=== PATIENT | female | born 1930 | race Caucasian/White ===

== ENCOUNTER → 2018-05-04 | Outpatient (REF) | payer MEDICARE, OTHER ==
[2018-05-04 18:39] LABS: ALBUMIN 3.5 GM/DL (3.2-5.2); ALBUMIN/GLOBULIN RATIO 1.17 (1.00-1.93); ALKALINE PHOSPHATASE 83 U/L (45-117); ALT/SGPT 12 U/L (12-78); ANION GAP 12 MEQ/L (8-16); AST/SGOT 20 U/L (7-37); BILIRUBIN,TOTAL 0.7 MG/DL (0.2-1.0); BLOOD UREA NITROGEN 13 MG/DL (7-18); CALCIUM LEVEL 8.9 MG/DL (8.8-10.2); CARBON DIOXIDE LEVEL 24 MEQ/L (21-32); CHLORIDE LEVEL 109 MEQ/L (98-107); CREATININE FOR GFR 0.65 MG/DL (0.55-1.30); GLOMERULAR FILTRATION RATE > 60.0 (>32); GLUCOSE, FASTING 85 MG/DL (70-100); POTASSIUM SERUM 4.6 MEQ/L (3.5-5.1); SODIUM LEVEL 145 MEQ/L (136-145); TOTAL PROTEIN 6.5 GM/DL (6.4-8.2)
[2018-05-04 20:13] LABS: HEMATOCRIT 44.2 % (36.0-47.0); HEMOGLOBIN 14.4 g/dl (12.0-15.5); MEAN CORPUSCULAR HEMOGLOBIN 33.8 pg (27.0-33.0); MEAN CORPUSCULAR HGB CONC 32.6 g/dl (32.0-36.5); MEAN CORPUSCULAR VOLUME 103.8 fl (80.0-96.0); PLATELET COUNT, AUTOMATED 283 10^3/uL (150-450); RED BLOOD COUNT 4.26 10^6/uL (4.00-5.40); RED CELL DISTRIBUTION WIDTH 13.2 % (11.5-14.5); WHITE BLOOD COUNT 5.2 10^3/uL (4.0-10.0)
== END ==
LOC: M SFHCCAPE 09:49
DX: K21.9 Gastro-esophageal reflux disease without esophagitis (principal); G30.9 Alzheimer's disease, unspecified
CPT/HCPCS: 80053

== ENCOUNTER 2019-01-17 20:49 | Observation (INO) | payer MEDICARE, BC, OTHER ==
[~2019-01-17] VITALS: Ht 154.9 cm; Wt 59.1 kg
[~2019-01-17 20:49] MED LIST: CEPH2CAP PO; PRIL20CA PO; XARE15TA PO
[2019-01-17] MEDS ORDERED: NS 1,000 ML IV ONE (21:15)
[2019-01-17] MEDS ORDERED: NS 500 ML IV ONE (21:15)
[2019-01-17] MEDS ORDERED: DONE10TA90 PO (21:15)
[2019-01-17] MEDS ORDERED: MEMA1TAB2 PO (21:15)
[2019-01-17] MEDS ORDERED: ACET1TAB55 PO (21:18)
--- NOTE | 2019-01-17 22:12 | REPVR ---
EXAM: CT Cervical Spine Without Contrast EXAM DATE/TIME: 01/17/2019 9:29 PM CLINICAL HISTORY: 88 years old, female; Pain; Other: Fall; Additional info: Fall/xarelto TECHNIQUE: Imaging protocol: Axial computed tomography images of the cervical spine without contrast. Coronal and sagittal reformatted images were created and reviewed. Radiation optimization: All CT scans at this facility use at least one of these dose optimization techniques: automated exposure control; mA and/or kV adjustment per patient size (includes targeted exams where dose is matched to clinical indication); or iterative reconstruction. COMPARISON: No relevant prior studies available. FINDINGS: Vertebrae: Osteopenia. Normal cervical lordosis. Mild levoscoliosis. Minimal retrolisthesis of C2 on C3. Mild anterolisthesis of C4 on C5 and C7 on T1. Alignment otherwise anatomic. No CT evidence of acute fracture, dislocation or subluxation. Vertebral body heights maintained. Discs/Spinal canal/Neural foramina: Mild multilevel degenerative changes, characterized by disc space narrowing, osteophytosis and uncovertebral and facet joint hypertrophy. Mild multilevel spinal canal and neural foraminal narrowing. Soft tissues: Grossly unremarkable. Lungs: Grossly unremarkable. IMPRESSION: 1. No CT evidence of acute cervical spine traumatic injury. 2. Additional findings, as above. Electronically signed by: Melchor Dean On 01/17/2019 22:11:50 PM
--- NOTE | 2019-01-17 22:16 | REPVR ---
EXAM: CT Head Without Contrast EXAM DATE/TIME: 01/17/2019 9:29 PM CLINICAL HISTORY: 88 years old, female; Pain; Other: Fall; Additional info: Fall/xarelto TECHNIQUE: Imaging protocol: Axial computed tomography images of the head/brain without contrast. Radiation optimization: All CT scans at this facility use at least one of these dose optimization techniques: automated exposure control; mA and/or kV adjustment per patient size (includes targeted exams where dose is matched to clinical indication); or iterative reconstruction. COMPARISON: No relevant prior studies available. FINDINGS: Brain: Patchy areas of hypoattenuation in the periventricular and subcortical white matter, consistent with chronic small vessel ischemic disease. Focal, well-circumscribed hypodensities in the basal ganglia and cerebellum, consistent with chronic lacunar infarcts. No CT evidence of acute intracranial hemorrhage or acute territorial infarction. No significant mass effect or midline shift. Basal cisterns patent. Ventricles: Prominence of the cortical sulci, cisterns and ventricular system, consistent with cerebral and cerebellar volume loss. Bones/joints: No acute osseous abnormality. Sinuses: Left greater than right maxillary sinus polyps versus mucous retention cysts. Mastoid air cells: Grossly unremarkable. Soft tissues: Grossly unremarkable. Vasculature: Calcific atherosclerotic disease in the cavernous internal carotid arteries, as well as the vertebro-basilar system. IMPRESSION: 1. No CT evidence of acute intracranial pathology. 2. Additional findings, as above. Electronically signed by: Melchor Dean On 01/17/2019 22:15:45 PM
[2019-01-17 22:46] LABS: BASO % 0.3 % (0.0-1.0); EOS % 0.2 % (0.0-3.0); HEMOGLOBIN 13.4 g/dl (12.0-15.5); LYMPH # 0.9 10^3/uL (1.5-4.5); LYMPH % 8.2 % (24.0-44.0); MEAN CORPUSCULAR HEMOGLOBIN 35.3 pg (27.0-33.0); MEAN CORPUSCULAR HGB CONC 33.5 g/dl (32.0-36.5); MEAN CORPUSCULAR VOLUME 105.3 fl (80.0-96.0); MONO # 0.9 10^3/uL (0.0-0.8); MONO % 7.7 % (0.0-5.0); NEUTROPHILS # 9.3 10^3/uL (1.8-7.7); NEUTROPHILS % 83.3 % (36.0-66.0); PLATELET COUNT, AUTOMATED 208 10^3/uL (150-450); WHITE BLOOD COUNT 11.2 10^3/uL (4.0-10.0)
[2019-01-17 22:48] LABS: VENOUS BASE EXCESS 0.6 (-2.0-2.0); VENOUS HCO3 26.2 MEQ/L (23.0-27.0); VENOUS PARTIAL PRESSURE CO2 45.6 mmHg (38.0-50.0); VENOUS PARTIAL PRESSURE O2 35.6 mmHg (30.0-50.0); VENOUS PH 7.377 UNITS (7.330-7.430); VENOUS STANDARD HCO3 24.3 MEQ/L; VENOUS TOTAL CO2 27.6 MEQ/L (24.0-28.0)
[2019-01-17 23:13] LABS: OSMOLALITY SERUM 297 MOSM/KG (280-301)
[2019-01-17 23:24] LABS: ALBUMIN 3.3 GM/DL (3.2-5.2); ALT/SGPT 15 U/L (12-78); BILIRUBIN,DIRECT 0.2 MG/DL (0.0-0.2); BILIRUBIN,TOTAL 0.6 MG/DL (0.2-1.0); BLOOD UREA NITROGEN 16 MG/DL (7-18); CALCIUM LEVEL 8.4 MG/DL (8.8-10.2); CARBON DIOXIDE LEVEL 27 MEQ/L (21-32); CHLORIDE LEVEL 110 MEQ/L (98-107); CK-MB VALUE MASS < 1.0 NG/ML (<3.6); CPK CREATINE PHOSPHOKINASE 44 U/L (26-192); CREATININE FOR GFR 0.87 MG/DL (0.55-1.30); GLOMERULAR FILTRATION RATE > 60.0 (>32); GLUCOSE, FASTING 112 MG/DL (70-100); MB/CK RELATIVE INDEX 2.27 (< OR =4); SODIUM LEVEL 145 MEQ/L (136-145); TOTAL PROTEIN 5.9 GM/DL (6.4-8.2); TROPONIN I < 0.02 NG/ML (< 0.10)
[2019-01-17 23:52] LABS: FREE T4 1.16 NG/DL (0.76-1.46)
[2019-01-18] MEDS ORDERED: XARE20TA PO (00:39)
--- NOTE | 2019-01-18 00:41 | HPEPDOC ---
General Date of Admission Chief Complaint The patient is a 88-year-old female admitted with a reason for visit of Weakness. Source: Family, RN/MD, Old records History of Present Illness Ms. Barba is an 88 years old woman with dementia. She was brought to ER due to generalized weakness, increased assist requirement for ambulation and generally not looking well. Pt is alert and responsive in the ER. Nurse reported pt was combative and spat at the staff. Vitals, labs and extensive imaging are u nremarkable for acute illness. During my visit, pt recognized her daughter, but she did not allow me to examine her nor answered any question. Info obtained fro family. There are no other acute problems reported, than mentioned above. Pt has chronic knee and back pain for which she takes Tylenol at home. Family prefers pt to stay overnight for observation. Home Medications Scheduled Acetaminophen (Acetaminophen) 325 Mg Tablet, 650 MG PO BID, (Reported) Donepezil HCl (Donepezil HCl) 10 Mg Tablet, 10 MG PO QPM, (Reported) Memantine HCl (Memantine HCl) 10 Mg Tablet, 10 MG PO QPM, (Reported) Rivaroxaban (Xarelto) 20 Mg Tablet, 20 MG PO QPM, (Reported) Allergies Coded Allergies: Penicillins (Verified Allergy, Unknown, 01/17/19) Past Medical History Medical History Alzheimer's dementia, Chronic pain, Ambulation dysfunction Surgical History Right knee surgery, Bunion removal Family History Significant Family History: No pertinent family hx Social History * Smoker: Denies Alcohol: Denies Drugs: denies A-FIB/CHADSVASC A-FIB History Current/History of A-Fib/PAF?: No Review of Systems Other systems Unable to obtain due to dementia; refer to HPI info obtained from family. Physical Examination General Exam: Positive: Alert, No Acute Distress, Other (uncooperative) Other physical findings Pt did not allow physical exam. There were no facial asymmetry; pt was moving all limbs properly; not in distress or pain. Vital Signs Vital Signs Date Time Temp Pulse Resp B/P (MAP) Pulse Ox O2 Delivery O2 Flow Rate FiO2 01/17/19 21:04 85 97 01/17/19 21:00 117/58 (77) 01/17/19 20:59 98.8 18 Room Air Laboratory Data Labs 24H Laboratory Tests 2 01/17/19 22:28: Immature Granulocyte % (Auto) 0.3, White Blood Count 11.2H, Red Blood Count 3.80L, Hemoglobin 13.4, Hematocrit 40.0, Mean Corpuscular Volume 105.3H, Mean Corpuscular Hemoglobin 35.3H, Mean Corpuscular Hemoglobin Concent 33.5, Red Cell Distribution Width 13.0, Platelet Count 208, Neutrophils (%) (Auto) 83.3H, Lymphocytes (%) (Auto) 8.2L, Monocytes (%) (Auto) 7.7H, Eosinophils (%) (Auto) 0.2, Basophils (%) (Auto) 0.3, Neutrophils # (Auto) 9.3H, Lymphocytes # (Auto) 0.9L, Monocytes # (Auto) 0.9H, Eosinophils # (Auto) 0.0, Basophils # (Auto) 0.0, Nucleated Red Blood Cells % (auto) 0.0, Blood Gas Bicarbonate Standard 24.3, Venous Blood pH 7.377, Venous Blood Partial Pressure CO2 45.6, Venous Blood Partial Pressure O2 35.6, Venous Blood Total Carbon Dioxide 27.6, Venous Blood HCO3 26.2, Venous Blood Oxygen Saturation 68.0, Venous Blood Base Excess 0.6, Anion Gap 8, Glomerular Filtration Rate > 60.0, Osmolality 297, Calcium Level 8.4L, Aspartate Amino Transf (AST/SGOT) 17, Alanine Aminotransferase (ALT/SGPT) 15, Alkaline Phosphatase 85, Total Bilirubin 0.6, Direct Bilirubin 0.2, Ammonia 15, Total Creatine Kinase 44, Creatine Kinase MB < 1.0, Creatine Kinase MB Relative Index 2.27, Troponin I < 0.02, Total Protein 5.9L, Albumin 3.3, Albumin/Globulin Ratio 1.27, Thyroid Stimulating Hormone (TSH) 0.350L, Free Thyroxine 1.16 01/17/19 22:32: Urine Color YELLOW, Urine Appearance CLEAR, Urine pH 5.0, Urine Specific [place] 1.017, Urine Protein NEGATIVE, Urine Glucose (UA) NEGATIVE, Urine Ketones 1+H, Urine Blood NEGATIVE, Urine Nitrite NEGATIVE, Urine Bilirubin NEGATIVE, Urine Urobilinogen 2.0H, Urine Leukocyte Esterase NEGATIVE, Urine WBC (Auto) 3, Urine RBC (Auto) 1, Urine Hyaline Casts (Auto) 0, Urine Bacteria (Auto) NEGATIVE, Urine Squamous Epithelial Cells 1, Urine Sperm (Auto) CBC/BMP Laboratory Tests 01/17/19 22:28 Red Blood Count 3.80 L, Mean Corpuscular Volume 105.3 H, Mean Corpuscular Hemoglobin 35.3 H, Mean Corpuscular Hemoglobin Concent 33.5, Red Cell Distribution Width 13.0, Neutrophils (%) (Auto) 83.3 H, Lymphocytes (%) (Auto) 8.2 L, Monocytes (%) (Auto) 7.7 H, Eosinophils (%) (Auto) 0.2, Basophils (%) (Auto) 0.3, Neutrophils # (Auto) 9.3 H, Lymphocytes # (Auto) 0.9 L, Monocytes # (Auto) 0.9 H, Eosinophils # (Auto) 0.0, Basophils # (Auto) 0.0 Microbiology Microbiology 01/17/19 Blood Culture, Received Pending 01/17/19 Blood Culture, Received Pending Assessment/Plan Dementia with Sundowning and Behavioral Disturbance - Keep in Obs - PT/OT, Supportive care - D/C home tomorrow Plan / VTE VTE Prophylaxis Ordered?: No VTE Exclusion Mechanical Proph: Low Risk for VTE VTE Exclusion Pharmacological: At Low Risk for VTE Plan Anticipated Discharge: Home BOBO RUVALCABA MD January 18, 2019 00:41
[2019-01-18] MEDS ORDERED: ACETAMINOPHEN TAB 650MG DOSE (2X325MG) PO PRN (00:45)
[2019-01-18] MEDS ORDERED: MOM 30ML SUSPENSION UDC PO PRN (00:45)
[2019-01-18] MEDS ORDERED: MAALOX 30 ML SUSP *UDC PO PRN (00:45)
[2019-01-18 02:45] VITALS: BP 143/68
[2019-01-18 06:00] VITALS: BP 140/60
--- NOTE | 2019-01-18 06:00 | ECGEPIP ---
Stationary ECG Study [facility] - ED Test Date: 2019-01-17 Pat Name: SUHA ALMODOVAR Department: Room: - Gender: F [employer]: : 1930 Requested By: LAYNE Lees Order Number: [id number] Reading MD: Ronan Saldivar Measurements Intervals [place] Rate: 70 P: 91 MS: 142 QRS: -7 QRSD: 83 T: 39 QT: 394 QTc: 426 Interpretive Statements SINUS RHYTHM NONSPECIFIC T-WAVE ABNORMALITY BASELINE ARTIFACT AFFECTS INTERPRETATION Electronically Signed On 01-18-2019 5:59:29 EDT by Ronan Saldivar
--- NOTE | 2019-01-18 08:04 | REP ---
Pelvis left hip: Three views. History: Altered mental status. Findings: AP and frog-leg views of the left hip are obtained along with an AP pelvis. There is diffuse osteopenia. Bony pelvic ring is intact. There is no evidence of fracture. No bony destructive lesion is appreciated. No sacral fracture or sacral lesion is seen. There are degenerative disc changes at L4-5. Osteoarthritic spurring is seen at the hip joints bilaterally, right more so than left. No femur fracture is noted. There are some osteoarthritic changes at the symphysis pubis. Impression: Diffuse osteopenia, osteoarthritis, degenerative spondylosis in the lower lumbar spine. No acute bony abnormality. Electronically Signed by Noel Kirkland MD 01/18/2019 07:56 A
--- NOTE | 2019-01-18 08:05 | REP ---
Left knee series: Four views. History: Altered mental status. Findings: Four views of the left knee show diffuse osteopenia. There is three compartment osteoarthritis. Vascular calcification is seen. Chondrocalcinosis is noted. No acute bony abnormality. The study does not include the sunrise view. Impression: Diffuse osteopenia. Three compartment osteoarthritis. No acute bony abnormality. Electronically Signed by Noel Kirkland MD 01/18/2019 07:57 A
--- NOTE | 2019-01-18 08:19 | REP ---
Left tibia and fibula: Four views. History: Altered mental status. Findings: Four views of the left tibia and fibula demonstrate diffuse osteopenia. There is ankle and knee joint osteoarthritic spurring. Heel spurring is noted. Vascular calcification is visible. No fracture or other acute bony abnormality is appreciated. Impression: Diffuse osteopenia and osteoarthritic changes. No acute bony abnormality. Electronically Signed by Noel Kirkland MD 01/18/2019 08:09 A
--- NOTE | 2019-01-18 08:21 | REP ---
Portable chest x-ray: Single view. History: Altered mental status. Comparison study: February 15, 2014 and November 13, 2013. Findings: The patient is rotated somewhat to the left for the current exposure. EKG electrodes are seen. Heart is not felt to be enlarged. The thoracic aorta shows vascular calcification. There is mild linear fibrosis in the posterior right lung gutter. No definite infiltrate. Impression: The patient is rotated to the left. Otherwise no acute disease. Electronically Signed by Noel Kirkland MD 01/18/2019 07:12 P
[2019-01-18] MEDS: ACETAMINOPHEN TAB 650MG DOSE (2X325MG) PO SCH ×2 (09:28→17:36)
[2019-01-18 14:00] VITALS: BP 121/58
[2019-01-18] MEDS ORDERED: DONEPEZIL 5 MG TAB PO SCH (18:00)
[2019-01-18] MEDS ORDERED: RIVAROXABAN 20 MG TAB (XARELTO) PO SCH (18:00)
[2019-01-18] MEDS ORDERED: MEMANTINE 5MG TABLET (NAMENDA) PO SCH (18:00)
[2019-01-18 22:00] VITALS: BP 130/67
[2019-01-19 06:00] VITALS: BP 131/63
[2019-01-19 06:05] LABS: HEMATOCRIT 36.3 % (36.0-47.0); HEMOGLOBIN 12.1 g/dl (12.0-15.5); MEAN CORPUSCULAR HEMOGLOBIN 33.9 pg (27.0-33.0); MEAN CORPUSCULAR HGB CONC 33.3 g/dl (32.0-36.5); MEAN CORPUSCULAR VOLUME 101.7 fl (80.0-96.0); PLATELET COUNT, AUTOMATED 190 10^3/uL (150-450); RED BLOOD COUNT 3.57 10^6/uL (4.00-5.40); WHITE BLOOD COUNT 5.9 10^3/uL (4.0-10.0)
[2019-01-19 07:55] LABS: ALBUMIN 3.1 GM/DL (3.2-5.2); ALT/SGPT 11 U/L (12-78); BILIRUBIN,TOTAL 0.6 MG/DL (0.2-1.0); BLOOD UREA NITROGEN 17 MG/DL (7-18); CALCIUM LEVEL 8.5 MG/DL (8.8-10.2); CARBON DIOXIDE LEVEL 27 MEQ/L (21-32); CHLORIDE LEVEL 111 MEQ/L (98-107); CREATININE FOR GFR 0.61 MG/DL (0.55-1.30); GLOMERULAR FILTRATION RATE > 60.0 (>32); GLUCOSE, FASTING 88 MG/DL (70-100); POTASSIUM SERUM 3.5 MEQ/L (3.5-5.1); SODIUM LEVEL 144 MEQ/L (136-145); TOTAL PROTEIN 5.5 GM/DL (6.4-8.2)
[2019-01-19 09:20] LABS: FOLATE 8.8 NG/ML (>5.4); VITAMIN B12 LEVEL 228 PG/ML (247-911)
[2019-01-19] MEDS: ACETAMINOPHEN TAB 650MG DOSE (2X325MG) PO SCH (10:20)
== END 2019-01-19 13:26 | disposition home or self-care (01) ==
LOC: M ED 20:49 → EDBD 20:49 → M ED INP 20:50 → M MSPAV 20:50
PROVIDERS: ADMIT Internal Medicine; ATTEND Family Medicine
DX: G93.41 Metabolic encephalopathy (principal); G30.9 Alzheimer's disease, unspecified; F02.81 Dementia in other diseases classified elsewhere, unspecified severity, with behavioral disturbance; G89.4 Chronic pain syndrome; M62.81 Muscle weakness (generalized); R26.9 Unspecified abnormalities of gait and mobility; K21.9 Gastro-esophageal reflux disease without esophagitis; M25.562 Pain in left knee; Z91.81 History of falling; N32.81 Overactive bladder; Z79.899 Other long term (current) drug therapy; Z88.0 Allergy status to penicillin
CPT/HCPCS: 36415; 70450; 71045; 72125; 73502; 73564; 73590; 80048; 80053; 80076; 81001; 82140; 82550; 82553; 82607; 82746; 82803; 83930; 84439; 84443; 84484; 85025; 85027; 87040; 93005; 93041; 96374; 97116; 97161; 97165; 97530; 99285; G0378

== ENCOUNTER 2019-03-19 16:57 | Inpatient (IN) | payer MEDICARE, BC, OTHER ==
[~2019-03-19] VITALS: Ht 152.4 cm; Wt 61.4 kg
[~2019-03-19 16:57] MED LIST changes: +ACET1TAB55 PO; +DONE10TA90 PO; +MEMA10TA19 PO; +XARE20TA PO
[2019-03-19] MEDS ORDERED: NS 500 ML IV ONE ×2 (17:15→19:15)
--- NOTE | 2019-03-19 17:32 | REPVR ---
EXAM: CT Head Without Contrast EXAM DATE/TIME: 03/19/2019 5:26 PM CLINICAL HISTORY: 88 years old, female; Altered mental status/memory loss; Confusion or disorientation TECHNIQUE: Imaging protocol: Axial computed tomography images of the head without contrast. Radiation optimization: All CT scans at this facility use at least one of these dose optimization techniques: automated exposure control; mA and/or kV adjustment per patient size (includes targeted exams where dose is matched to clinical indication); or iterative reconstruction. COMPARISON: CT Head without contrast 01/17/2019 9:13 PM FINDINGS: Brain: There is moderate age-related parenchymal volume loss. White matter changes are demonstrated in the subcortical, centrum semiovale and periventricular white matter consistent with small vessel white matter angiopathic gliosis. Ventricles: The degree of ventricular dilatation is normal for age. No pathologic enlargement demonstrated. Bones/joints: Unremarkable. No acute fracture. Sinuses: Visualized sinuses are unremarkable. No fluid levels. Mastoid air cells: Visualized mastoid air cells are well aerated. No mastoid effusion. Soft tissues: Unremarkable. IMPRESSION: There is moderate age-related parenchymal volume loss. White matter changes are demonstrated in the subcortical, centrum semiovale and periventricular white matter consistent with small vessel white matter angiopathic gliosis. Electronically signed by: Eric Duffy On 03/19/2019 17:32:10 PM
[2019-03-19 18:08] LABS: BASO % 0.2 % (0.0-1.0); HEMATOCRIT 43.1 % (36.0-47.0); HEMOGLOBIN 14.2 g/dl (12.0-15.5); LYMPH # 0.8 10^3/uL (1.5-4.5); LYMPH % 7.5 % (24.0-44.0); MEAN CORPUSCULAR HEMOGLOBIN 34.5 pg (27.0-33.0); MEAN CORPUSCULAR HGB CONC 32.9 g/dl (32.0-36.5); MEAN CORPUSCULAR VOLUME 104.6 fl (80.0-96.0); MONO # 0.7 10^3/uL (0.0-0.8); MONO % 6.6 % (0.0-5.0); NEUTROPHILS % 85.3 % (36.0-66.0); PLATELET COUNT, AUTOMATED 283 10^3/uL (150-450); RED BLOOD COUNT 4.12 10^6/uL (4.00-5.40); WHITE BLOOD COUNT 10.5 10^3/uL (4.0-10.0)
[2019-03-19 18:21] LABS: INR 1.05; PROTHROMBIN TIME 13.4 SECONDS (11.8-14.0)
[2019-03-19 18:22] LABS: PARTIAL THROMBOPLASTIN TIME 21.5 SECONDS (25.0-38.4)
[2019-03-19 18:42] LABS: ACETAMINOPHEN LEVEL < 2.0 UG/ML (10.0-30.0); ALBUMIN 3.7 GM/DL (3.2-5.2); ALT/SGPT 23 U/L (12-78); BILIRUBIN,DIRECT 0.1 MG/DL (0.0-0.2); BILIRUBIN,TOTAL 0.6 MG/DL (0.2-1.0); BLOOD UREA NITROGEN 15 MG/DL (7-18); CALCIUM LEVEL 9.1 MG/DL (8.8-10.2); CARBON DIOXIDE LEVEL 26 MEQ/L (21-32); CHLORIDE LEVEL 107 MEQ/L (98-107); CK-MB VALUE MASS 118.3 NG/ML (<3.6); CPK CREATINE PHOSPHOKINASE 1030 U/L (26-192); CREATININE FOR GFR 1.43 MG/DL (0.55-1.30); ETHYL ALCOHOL (ETHANOL) < 0.003 % (0.000-0.010); GLOMERULAR FILTRATION RATE 36.9 (>32); GLUCOSE, FASTING 132 MG/DL (70-100); MB/CK RELATIVE INDEX 11.49 (< OR =4); NT-PRO BNP 4035 PG/ML (<450); POTASSIUM SERUM 4.4 MEQ/L (3.5-5.1); SALICYLATE LEVEL < 1.7 MG/DL (5.0-30.0); SODIUM LEVEL 141 MEQ/L (136-145); THYROID STIMULATING HORMONE 0.931 uIU/ML (0.358-3.740); TOTAL PROTEIN 6.7 GM/DL (6.4-8.2)
[2019-03-19] MEDS ORDERED: ASPIRIN 81 MG CHEW TABLET PO ONE (19:15)
[2019-03-19] MEDS ORDERED: NS 1,000 ML IV SCH (20:30)
--- NOTE | 2019-03-19 20:38 | HPEPDOC ---
General Date of Admission Mar 19, 2019 at 19:58 Date of Service: Mar 19, 2019 Chief Complaint The patient is a 88-year-old female admitted with a reason for visit of Non- Stemi. History of Present Illness 88-year-old female with past medical history of dementia, DVT on Xarelto presented to the ER with her daughter after she was noted to be increasingly lethargic and with some shortness of breath. The patient's history is limited given her dementia, but she denies any chest pain. In the ER, the patient's daughter states that the patient is looking much better than she did at home. She denies any shortness of breath. The patient's daughter denies the patient having any history of coronary artery disease. In the ER, an EKG revealed bradycardia with a junctional rhythm. Also of note, the patient's troponin level was noted to be 18.6. The ER attending and myself discussed at length about whether the patient wanted to be transferred to [place] for a cardiac catheterization. At this point, the patient's daughter/healthcare proxy has declined sending the patient for a cardiac catheterization. They want medical treatment only at this time, and have signed a DNR/DNI Mol[employer] form. The patient will be admitted to the hospitalist service for further evaluation and management. Home Medications Scheduled Acetaminophen (Acetaminophen) 325 Mg Tablet, 650 MG PO BID, (Reported) Donepezil HCl (Donepezil HCl) 10 Mg Tablet, 10 MG PO QPM, (Reported) Memantine HCl (Memantine HCl) 10 Mg Tablet, 10 MG PO BID, (Reported) Rivaroxaban (Xarelto) 20 Mg Tablet, 20 MG PO QPM, (Reported) Allergies Coded Allergies: Penicillins (Verified Allergy, Unknown, 01/17/19) Past Medical History Medical History As noted in HPI. Social History * Smoker: Denies Alcohol: Denies Drugs: denies Lives with her daughter and son at home. Ambulates with a rolling walker with assistance Review of Systems Other systems 10 point review of systems is limited given the patient's dementia Physical Examination General Exam: Positive: Alert, Cooperative, No Acute Distress ENT Exam: Positive: Atraumatic, Mucous membr. moist/pink Neck Exam: Negative: JVD Chest Exam: Positive: Clear to auscultation, Normal air movement Heart Exam: Positive: Bradycardic Telemetry: Positive: Other Telemetry: (junctional bradycardia) Abdomen Exam: Positive: Soft; Negative: Tenderness Extremity Exam: Negative: Tenderness, Swelling Vital Signs Vital Signs Date Time Temp Pulse Resp B/P (MAP) Pulse Ox O2 Delivery O2 Flow Rate FiO2 03/19/19 19:22 55 18 103/57 (72) 97 Room Air 03/19/19 17:14 98.5 Laboratory Data Labs 24H Laboratory Tests 2 03/19/19 17:39: Immature Granulocyte % (Auto) 0.4, White Blood Count 10.5H, Red Blood Count 4.12, Hemoglobin 14.2, Hematocrit 43.1, Mean Corpuscular Volume 104.6H, Mean Corpuscular Hemoglobin 34.5H, Mean Corpuscular Hemoglobin Concent 32.9, Red Cell Distribution Width 13.2, Platelet Count 283, Neutrophils (%) (Auto) 85.3H, Lymphocytes (%) (Auto) 7.5L, Monocytes (%) (Auto) 6.6H, Eosinophils (%) (Auto) 0.0, Basophils (%) (Auto) 0.2, Neutrophils # (Auto) 9.0H, Lymphocytes # (Auto) 0.8L, Monocytes # (Auto) 0.7, Eosinophils # (Auto) 0.0, Basophils # (Auto) 0.0, Nucleated Red Blood Cells % (auto) 0.0, Prothrombin Time 13.4, Prothromb Time International Ratio 1.05, Activated Partial Thromboplast Time 21.5L, Anion Gap 8, Glomerular Filtration Rate 36.9, Lactic Acid Level 3.8*H, Calcium Level 9.1, Aspartate Amino Transf (AST/SGOT) 134H, Alanine Aminotransferase (ALT/SGPT) 23, Alkaline Phosphatase 82, Total Bilirubin 0.6, Direct Bilirubin 0.1, Ammonia 21, Total Creatine Kinase 1030H, Creatine Kinase MB 118.3H, Creatine Kinase MB Relative Index 11.49H, Troponin I 18.60*H, RA-Mvi-W-Type Natriuretic Peptide 4035H, Total Protein 6.7, Albumin 3.7, Albumin/Globulin Ratio 1.23, Thyroid Stimulating Hormone (TSH) 0.931, Free Thyroxine 1.00, Salicylates Level < 1.7L, Acetaminophen Level < 2.0L, Ethyl Alcohol Level < 0.003 03/19/19 17:44: Bedside Glucose (Misc Panel) 139H 03/19/19 17:47: POC Glucose (Misc Panel) 139H, POC Sodium (Misc Panel) 141, POC Potassium (Misc Panel) 3.7, POC Chloride (Misc Panel) 105, POC Total CO2 (Misc Panel) 23.0, POC Blood Urea Nitrogen (Misc Panel 18, POC Ionized Calcium (Misc Panel) 4.2L, POC Creatinine (Misc Panel) 1.3, POC Hematocrit (Misc Panel) 45.0 CBC/BMP Laboratory Tests 03/19/19 17:39 Red Blood Count 4.12, Mean Corpuscular Volume 104.6 H, Mean Corpuscular Hemoglobin 34.5 H, Mean Corpuscular Hemoglobin Concent 32.9, Red Cell Distribution Width 13.2, Neutrophils (%) (Auto) 85.3 H, Lymphocytes (%) (Auto) 7.5 L, Monocytes (%) (Auto) 6.6 H, Eosinophils (%) (Auto) 0.0, Basophils (%) (Auto) 0.2, Neutrophils # (Auto) 9.0 H, Lymphocytes # (Auto) 0.8 L, Monocytes # (Auto) 0.7, Eosinophils # (Auto) 0.0, Basophils # (Auto) 0.0 Microbiology Microbiology 03/19/19 Blood Culture, Received Pending 03/19/19 Blood Culture, Received Pending Plan / VTE VTE Prophylaxis Ordered?: Yes Plan Plan Elevated Troponin, Junctional Bradycardia 2/2 NSTEMI EKG notable for junctional bradycardia. Her heart rate remains in the 40s-50s, but she is asymptomatic. Initial troponin noted to be 18.6.--We will continue to serially trend this I did discuss the case with Dr. Linda of cardiology via telephone, and at this time we'll continue the patient on Xarelto and start her on 81 mg of aspirin. We will continue to monitor the patient with supportive treatment History of DVT Continue Xarelto Hx of Dementia Cont memantine, donepezil DT prophylaxis On Xarelto JONATHAN MOCK MD Mar 19, 2019 20:38
[2019-03-19] MEDS ORDERED: MORPHINE 4 MG/ML 1ML VIAL/SYRINGE (J2270) IV PRN (20:45)
--- NOTE | 2019-03-19 20:49 | ECGEPIP ---
[facility] - ED Test Date: 2019-03-19 Pat Name: SUHA ALMODOVAR Department: Room: - Gender: Female K[employer]: : 1930 Requested By: May Loja Order Number: [id number] Reading MD: May Loja Measurements Intervals [place] Rate: 45 P: 268 VT: 70 QRS: QRSD: 98 T: 60 QT: 502 QTc: 438 Interpretive Statements JUNCTIONAL BRADYCARDIA NONSPECIFIC T-WAVE ABNORMALITY ABNORMAL RHYTHM ECG INTERPRETATION BASED ON A DEFAULT AGE OF 40 YEARS CW 01/17/19 RATE DECREASED RHYTHM CHANGE NONSPECIFIC ST T WAVE CHANGES CLINICAL CORRELATION ADVISED Electronically Signed on 03-19-2019 20:49:13 EDT by May Loja
[2019-03-19] MEDS ORDERED: RIVAROXABAN 20 MG TAB (XARELTO) PO SCH (21:00)
[2019-03-19] MEDS ORDERED: DONEPEZIL 5 MG TAB PO SCH (21:00)
[2019-03-19 21:15] LABS: AMPHETAMINES LEVEL URINE NEGATIVE (NEGATIVE); BARBITURATES URINE NEGATIVE (NEGATIVE); BENZODIAZEPINES URINE NEGATIVE (NEGATIVE); CANNABINOIDS URINE NEGATIVE (NEGATIVE); COCAINE METABOLITE URINE NEGATIVE (NEGATIVE); METHADONE URINE NEGATIVE (NEGATIVE); OPIATES URINE NEGATIVE (NEGATIVE); PHENCYCLIDINE URINE NEGATIVE (NEGATIVE)
[2019-03-19 21:29] VITALS: BP 117/58
[2019-03-19] MEDS: MEMANTINE 5MG TABLET (NAMENDA) PO SCH (22:07)
[2019-03-20] VITALS (7 sets, daily range): BP systolic 95–172; BP diastolic 60–84
[2019-03-20 06:16] LABS: HEMATOCRIT 38.9 % (36.0-47.0); HEMOGLOBIN 12.8 g/dl (12.0-15.5); MEAN CORPUSCULAR HEMOGLOBIN 34.6 pg (27.0-33.0); MEAN CORPUSCULAR HGB CONC 32.9 g/dl (32.0-36.5); MEAN CORPUSCULAR VOLUME 105.1 fl (80.0-96.0); PLATELET COUNT, AUTOMATED 239 10^3/uL (150-450); WHITE BLOOD COUNT 8.8 10^3/uL (4.0-10.0)
--- NOTE | 2019-03-20 06:26 | REP ---
Portable chest x-ray: Single view. History: Altered mental status. Comparison study: January 17, 2019. Findings: EKG monitoring electrodes overlie the chest. There is evidence of a hiatal hernia. Mild cardiomegaly is observed. The aorta is calcific and tortuous. The lungs are symmetrically aerated and clear. Pulmonary vasculature is not increased. There is diffuse osteopenia. Impression: Mild cardiomegaly. Evidence of a hiatal hernia. Otherwise no acute disease. Electronically Signed by Noel Kirkland MD 03/20/2019 11:41 A
[2019-03-20 07:06] LABS: ALBUMIN 3.1 GM/DL (3.2-5.2); BILIRUBIN,TOTAL 0.4 MG/DL (0.2-1.0); CALCIUM LEVEL 8.4 MG/DL (8.8-10.2); CK-MB VALUE MASS 77.7 NG/ML (<3.6); CREATININE FOR GFR 1.49 MG/DL (0.55-1.30); GLOMERULAR FILTRATION RATE 35.2 (>32); MAGNESIUM LEVEL 2.3 MG/DL (1.8-2.4); MB/CK RELATIVE INDEX 7.94 (< OR =4); POTASSIUM SERUM 3.8 MEQ/L (3.5-5.1); TOTAL PROTEIN 5.9 GM/DL (6.4-8.2); TROPONIN I 23.8 NG/ML (< 0.10)
[2019-03-20] MEDS: MEMANTINE 5MG TABLET (NAMENDA) PO SCH ×2 (08:24→20:09)
[2019-03-20] MEDS: ASPIRIN 81 MG ENTERIC TAB PO SCH (08:24)
--- NOTE | 2019-03-20 12:25 | IPNPDOC ---
Subjective Date Seen The patient was seen on 03/20/19. Subjective Chief Complaint/HPI I'm sleepy General: Reports: Other Symptoms (patient is sleepy but easily rousable. denies discomfort, dyspnea, and nausea) Objective Physical Examination General Exam: Positive: Alert, Cooperative, No Acute Distress ENT Exam: Positive: Atraumatic, Mucous membr. moist/pink Neck Exam: Negative: JVD Chest Exam: Positive: Clear to auscultation, Normal air movement Heart Exam: Positive: Bradycardic, Other (very soft heart tones.) Telemetry: Positive: Other Telemetry: (junctional bradycardia) Abdomen Exam: Positive: Normal bowel sounds, Soft; Negative: Tenderness Extremity Exam: Negative: Clubbing, Edema, Tenderness, Swelling Skin Exam: Positive: Nl turgor and temperature; Negative: Rash Psych Exam: Positive: Other (chronic dementia, no behavioral issues.) Assessment /Plan Problems (1) Non-STEMI (non-ST elevated myocardial infarction) Status: Acute Response to Treatment: Stable Problem Text: patient's family did not opt for intervention which seems an entirely reasonable decision in light of her age and dementia. will attempt to stabilize to achieve goal of returning home. DNR in place. On Asa, will recommend Statin as well. 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 calculated creatinine clearance is approx 25 using her measured weight, would be lower with IBW, so xarelto d/c'd, will substitute eliquis at 2.5mg bid (4) Dementia Status: Chronic Response to Treatment: Stable Problem Text: need to stop donepezil due to bradycardia, memantine can continue Plan/VTE VTE Prophylaxis Ordered?: Yes Plan Anticipated Discharge: Home Advance Directives: DNR VS, I&O, 24H, [place] Vital Signs/I&O Vital Signs Date Time Temp Pulse Resp B/P (MAP) Pulse Ox O2 Delivery O2 Flow Rate FiO2 03/20/19 08:00 97.6 38 25 131/68 (89) 93 03/19/19 20:33 Room Air I&O- Last 24 Hours up to 6 AM 03/20/19 06:00 Intake Total 0 ml Output Total 0 ml Balance 0 ml Laboratory Data 24H LABS Laboratory Tests 2 03/19/19 17:39: Immature Granulocyte % (Auto) 0.4, White Blood Count 10.5H, Red Blood Count 4.12, Hemoglobin 14.2, Hematocrit 43.1, Mean Corpuscular Volume 104.6H, Mean Corpuscular Hemoglobin 34.5H, Mean Corpuscular Hemoglobin Concent 32.9, Red Cell Distribution Width 13.2, Platelet Count 283, Neutrophils (%) (Auto) 85.3H, Lymphocytes (%) (Auto) 7.5L, Monocytes (%) (Auto) 6.6H, Eosinophils (%) (Auto) 0.0, Basophils (%) (Auto) 0.2, Neutrophils # (Auto) 9.0H, Lymphocytes # (Auto) 0.8L, Monocytes # (Auto) 0.7, Eosinophils # (Auto) 0.0, Basophils # (Auto) 0.0, Nucleated Red Blood Cells % (auto) 0.0, Prothrombin Time 13.4, Prothromb Time International Ratio 1.05, Activated Partial Thromboplast Time 21.5L, Anion Gap 8, Glomerular Filtration Rate 36.9, Lactic Acid Level 3.8*H, Calcium Level 9.1, Aspartate Amino Transf (AST/SGOT) 134H, Alanine Aminotransferase (ALT/SGPT) 23, Alkaline Phosphatase 82, Total Bilirubin 0.6, Direct Bilirubin 0.1, Ammonia 21, Total Creatine Kinase 1030H, Creatine Kinase MB 118.3H, Creatine Kinase MB Relative Index 11.49H, Troponin I 18.60*H, ZB-Wya-C-Type Natriuretic Peptide 4035H, Total Protein 6.7, Albumin 3.7, Albumin/Globulin Ratio 1.23, Thyroid Stimulating Hormone (TSH) 0.931, Free Thyroxine 1.00, Salicylates Level < 1.7L, Acetaminophen Level < 2.0L, Ethyl Alcohol Level < 0.003 03/19/19 17:44: Bedside Glucose (Misc Panel) 139H 03/19/19 17:47: POC Glucose (Misc Panel) 139H, POC Sodium (Misc Panel) 141, POC Potassium (Misc Panel) 3.7, POC Chloride (Misc Panel) 105, POC Total CO2 (Misc Panel) 23.0, POC Blood Urea Nitrogen (Misc Panel 18, POC Ionized Calcium (Misc Panel) 4.2L, POC Creatinine (Misc Panel) 1.3, POC Hematocrit (Misc Panel) 45.0 03/19/19 20:40: Urine Color YELLOW, Urine Appearance HAZY, Urine pH 5.0, Urine Specific [place] 1.017, Urine Protein 1+H, Urine Glucose (UA) NEGATIVE, Urine Ketones TRACEH, Urine Blood NEGATIVE, Urine Nitrite NEGATIVE, Urine Bilirubin NEGATIVE, Urine Urobilinogen 0.2, Urine Leukocyte Esterase NEGATIVE, Urine WBC (Auto) 2, Urine RBC (Auto) 2, Urine Hyaline Casts (Auto) 1, Urine Bacteria (Auto) NEGATIVE, Urine Squamous Epithelial Cells 1, Urine Amorphous Sediment SMALLH, Urine Mucus (Auto) SMALL, Urine Sperm (Auto) , Urine Amphetamines Screen NEGATIVE, Urine Benzodiazepines Screen NEGATIVE, Urine Opiates Screen NEGATIVE, Urine Methadone Screen NEGATIVE, Urine Barbiturates Screen NEGATIVE, Urine Phencyclidine Screen NEGATIVE, Urine Cocaine Metabolite Screen NEGATIVE, Urine Cannabinoids Screen NEGATIVE 03/19/19 22:21: Lactic Acid Followup at 4 Hours 3.6*H 03/20/19 05:48: Nucleated Red Blood Cells % (auto) 0.0, Anion Gap 6L, Glomerular Filtration Rate 35.2, Blood Urea Nitrogen 19H, Creatinine 1.49H, Sodium Level 142, Potassium Level 3.8, Chloride Level 112H, Carbon Dioxide Level 24, Calcium Level 8.4L, Aspartate Amino Transf (AST/SGOT) 154H, Alanine Aminotransferase (ALT/SGPT) 30, Total Creatine Kinase 978H, Alkaline Phosphatase 67, Total Bilirubin 0.4, Total Protein 5.9L, Albumin 3.1L, Magnesium Level 2.3, Creatine Kinase MB 77.7H, Creatine Kinase MB Relative Index 7.94H, Troponin I 23.80#*H, Albumin/Globulin Ratio 1.11 CBC/BMP Laboratory Tests 03/19/19 17:39 Red Blood Count 4.12, Mean Corpuscular Volume 104.6 H, Mean Corpuscular Hemoglobin 34.5 H, Mean Corpuscular Hemoglobin Concent 32.9, Red Cell Distribution Width 13.2, Neutrophils (%) (Auto) 85.3 H, Lymphocytes (%) (Auto) 7.5 L, Monocytes (%) (Auto) 6.6 H, Eosinophils (%) (Auto) 0.0, Basophils (%) (Auto) 0.2, Neutrophils # (Auto) 9.0 H, Lymphocytes # (Auto) 0.8 L, Monocytes # (Auto) 0.7, Eosinophils # (Auto) 0.0, Basophils # (Auto) 0.0 03/20/19 05:48 Red Blood Count 3.70 L, Mean Corpuscular Volume 105.1 H, Mean Corpuscular Hemoglobin 34.6 H, Mean Corpuscular Hemoglobin Concent 32.9, Red Cell Distribution Width 13.7, Calcium Level 8.4 L, Aspartate Amino Transf (AST/SGOT) 154 H, Alanine Aminotransferase (ALT/SGPT) 30, Total Creatine Kinase 978 H, Alkaline Phosphatase 67, Total Bilirubin 0.4, Total Protein 5.9 L, Albumin 3.1 L Microbiology Microbiology 03/19/19 Blood Culture, Received Pending 03/19/19 Blood Culture, Received Pending Bony Smith MD Mar 20, 2019 12:24
[2019-03-20 14:45] LABS: CK-MB VALUE MASS 56.8 NG/ML (<3.6); MB/CK RELATIVE INDEX 6.2 (< OR =4); TROPONIN I 20.8 NG/ML (< 0.10)
[2019-03-20] MEDS: ATORVASTATIN 20 MG TAB PO SCH (20:09)
[2019-03-20] MEDS: ACETAMINOPHEN TAB 650MG DOSE (2X325MG) PO PRN (20:10)
[2019-03-21] MEDS: APIXABAN 2.5 MG TAB (ELIQUIS) PO SCH ×2 (05:23→17:15)
[2019-03-21] MEDS: ACETAMINOPHEN TAB 650MG DOSE (2X325MG) PO PRN (05:25)
[2019-03-21 06:00] VITALS: BP 148/80
[2019-03-21 07:52] VITALS: BP 195/88
[2019-03-21] MEDS ORDERED: NITROGLYCERIN 0.3 MG SUBL TAB SL PRN (08:00)
[2019-03-21 08:09] LABS: HEMATOCRIT 41.8 % (36.0-47.0); HEMOGLOBIN 13.8 g/dl (12.0-15.5); MEAN CORPUSCULAR HEMOGLOBIN 35.2 pg (27.0-33.0); MEAN CORPUSCULAR VOLUME 106.6 fl (80.0-96.0); PLATELET COUNT, AUTOMATED 233 10^3/uL (150-450); RED BLOOD COUNT 3.92 10^6/uL (4.00-5.40); WHITE BLOOD COUNT 9.6 10^3/uL (4.0-10.0)
--- NOTE | 2019-03-21 08:29 | IPNPDOC ---
Subjective Date Seen The patient was seen on 03/21/19. Subjective Chief Complaint/HPI sleeping, when roused denies discomfort although she did report some left sided discomfort to nurse this am. ENT: Denies: Head Aches Pulmonary: Denies: Dyspnea, Cough Cardiovascular: Denies: Palpitations, Orthopnea Gastrointestinal: Denies: Nausea, Abdominal Pain Neurological: Reports: Other Symptoms (dementia unchanged.) Objective Physical Examination General Exam: Positive: Alert, Cooperative, No Acute Distress ENT Exam: Positive: Atraumatic, Mucous membr. moist/pink Neck Exam: Negative: JVD Chest Exam: Positive: Clear to auscultation, Normal air movement Heart Exam: Positive: Bradycardic, Other (very soft heart tones.) Telemetry: Positive: Other Telemetry: (junctional bradycardia) Abdomen Exam: Positive: Normal bowel sounds, Soft; Negative: Tenderness Extremity Exam: Negative: Clubbing, Edema, Tenderness, Swelling Skin Exam: Positive: Nl turgor and temperature; Negative: Rash Psych Exam: Positive: Other (chronic dementia, no behavioral issues.) Assessment /Plan Problems (1) Non-STEMI (non-ST elevated myocardial infarction) Status: Acute Response to Treatment: Stable Problem Text: 03/21: pressures running high, will add isosorbide mononitrate in small dose bid, titrate, also add low dose lisinopril with intent to titrate. ECG shows persistent bradycardia, rate 48, looks junctional and regular. evolving lateral T wave changes noted. Q waves inferiorly noted on admission ECG that were new compared to older records persist. she looks comfortable. Fa rachel goal is for her to return home with ASSISTED LIVING MANAGER level of care. daughter unsure about Hospice at this time but could be option. patient's family did not opt for intervention which seems an entirely reasonable decision in light of her age and dementia. will attempt to stabilize to achieve goal of returning home. DNR in place. On Asa, will recommend Statin as well. 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 calculated creatinine clearance is approx 25 using her measured weight, would be lower with IBW, so xarelto d/c'd, will substitute eliquis at 2.5mg bid (4) Dementia Status: Chronic Response to Treatment: Stable Problem Text: need to stop donepezil due to bradycardia, memantine can continue Plan/VTE VTE Prophylaxis Ordered?: Yes Plan Anticipated Discharge: Home Advance Directives: DNR VS, I&O, 24H, [place] Vital Signs/I&O Vital Signs Date Time Temp Pulse Resp B/P (MAP) Pulse Ox O2 Delivery O2 Flow Rate FiO2 03/21/19 07:52 97.0 46 16 195/88 (123) 93 03/19/19 20:33 Room Air I&O- Last 24 Hours up to 6 AM 03/21/19 06:00 Intake Total 900 ml Output Total 100 ml Balance 800 ml Laboratory Data 24H LABS Laboratory Tests 2 03/20/19 13:58: Total Creatine Kinase 916H, Creatine Kinase MB 56.8H, Creatine Kinase MB Relative Index 6.20H, Troponin I 20.80*H 03/21/19 07:52: Nucleated Red Blood Cells % (auto) 0.0 CBC/BMP Laboratory Tests 03/21/19 07:52 Red Blood Count 3.92 L, Mean Corpuscular Volume 106.6 H, Mean Corpuscular Hemoglobin 35.2 H, Mean Corpuscular Hemoglobin Concent 33.0, Red Cell Distribution Width 13.8 Microbiology Microbiology 03/19/19 Blood Culture - Preliminary, Resulted No growth after 24 hours . All specim... 03/19/19 Blood Culture - Preliminary, Resulted No growth after 24 hours . All specim... Bony Smith MD Mar 21, 2019 08:29
[2019-03-21 08:34] LABS: ALBUMIN 3.5 GM/DL (3.2-5.2); BILIRUBIN,TOTAL 0.6 MG/DL (0.2-1.0); CALCIUM LEVEL 9.1 MG/DL (8.8-10.2); CREATININE FOR GFR 1.1 MG/DL (0.55-1.30); GLOMERULAR FILTRATION RATE 49.9 (>32); POTASSIUM SERUM 3.8 MEQ/L (3.5-5.1); TOTAL PROTEIN 6.5 GM/DL (6.4-8.2)
--- NOTE | 2019-03-21 09:20 | ECGEPIP ---
[facility] Test Date: 2019-03-21 Pat Name: SUHA ALMODOVAR Department: Room: [place] [address] Gender: Female Public Health Nutritionist: JUAN : 1930 Requested By: Bony Hernandez Order Number: [id number] Reading MD: Carla Jolly Measurements Intervals [place] Rate: 46 P: GA: -1 QRS: 5 QRSD: 88 T: 42 QT: 516 QTc: 455 Interpretive Statements JUNTIONAL RHYTHM LAD ANTEROLATERAL ST T WAVE ABN POSSIBLE ISCHEMIC CHANGES MORE PROMINENT THAN 03/19/19 Electronically Signed on 03-21-2019 9:20:01 EDT by Carla Jolly
[2019-03-21] MEDS: ASPIRIN 81 MG ENTERIC TAB PO SCH (10:13)
[2019-03-21] MEDS: MEMANTINE 5MG TABLET (NAMENDA) PO SCH ×2 (10:13→19:55)
[2019-03-21] MEDS: ISOSORBIDE MONONITRATE 10MG TABLET PO SCH ×2 (10:13→17:00)
[2019-03-21] MEDS: LISINOPRIL *2.5 MG* TAB PO SCH (10:14)
[2019-03-21 14:00] VITALS: BP 146/63
[2019-03-21] MEDS: ATORVASTATIN 20 MG TAB PO SCH (19:55)
[2019-03-21 22:00] VITALS: BP 135/64
[2019-03-22] MEDS: ISOSORBIDE MONONITRATE 10MG TABLET PO SCH ×2 (05:42→17:00)
[2019-03-22] MEDS: APIXABAN 2.5 MG TAB (ELIQUIS) PO SCH ×2 (05:42→17:31)
[2019-03-22 06:00] VITALS: BP 158/88
[2019-03-22 07:46] LABS: BASO % 0.3 % (0.0-1.0); EOS % 0.2 % (0.0-3.0); HEMATOCRIT 36.3 % (36.0-47.0); HEMOGLOBIN 12.2 g/dl (12.0-15.5); LYMPH # 1.1 10^3/uL (1.5-4.5); LYMPH % 12.1 % (24.0-44.0); MEAN CORPUSCULAR HEMOGLOBIN 35.1 pg (27.0-33.0); MEAN CORPUSCULAR HGB CONC 33.6 g/dl (32.0-36.5); MEAN CORPUSCULAR VOLUME 104.3 fl (80.0-96.0); MONO # 0.9 10^3/uL (0.0-0.8); MONO % 9.9 % (0.0-5.0); NEUTROPHILS # 6.8 10^3/uL (1.8-7.7); NEUTROPHILS % 76.8 % (36.0-66.0); PLATELET COUNT, AUTOMATED 219 10^3/uL (150-450); RED BLOOD COUNT 3.48 10^6/uL (4.00-5.40); WHITE BLOOD COUNT 8.8 10^3/uL (4.0-10.0)
[2019-03-22 08:11] LABS: ALBUMIN 3.1 GM/DL (3.2-5.2); ALT/SGPT 37 U/L (12-78); BILIRUBIN,TOTAL 0.6 MG/DL (0.2-1.0); BLOOD UREA NITROGEN 22 MG/DL (7-18); CALCIUM LEVEL 8.7 MG/DL (8.8-10.2); CARBON DIOXIDE LEVEL 28 MEQ/L (21-32); CHLORIDE LEVEL 110 MEQ/L (98-107); CREATININE FOR GFR 0.85 MG/DL (0.55-1.30); GLOMERULAR FILTRATION RATE > 60.0 (>32); GLUCOSE, FASTING 109 MG/DL (70-100); POTASSIUM SERUM 3.7 MEQ/L (3.5-5.1); SODIUM LEVEL 143 MEQ/L (136-145); TOTAL PROTEIN 5.9 GM/DL (6.4-8.2)
[2019-03-22] MEDS: LISINOPRIL *2.5 MG* TAB PO SCH (08:30)
[2019-03-22] MEDS: MEMANTINE 5MG TABLET (NAMENDA) PO SCH ×2 (08:30→21:08)
[2019-03-22] MEDS: ASPIRIN 81 MG ENTERIC TAB PO SCH (08:30)
--- NOTE | 2019-03-22 08:49 | IPNPDOC ---
Subjective Date Seen The patient was seen on 03/22/19. Subjective Chief Complaint/HPI NSTEMI Events since last encounter BP stable since addition of Isosorbide. General: Reports: ROS Unobtainable Objective Physical Examination General Exam: Positive: Cooperative, No Acute Distress, Other (sleeping) ENT Exam: Positive: Atraumatic, Mucous membr. moist/pink Neck Exam: Negative: JVD Chest Exam: Positive: Clear to auscultation, Normal air movement Heart Exam: Positive: Bradycardic, Other (very soft heart tones.) Abdomen Exam: Positive: Normal bowel sounds, Soft; Negative: Tenderness Extremity Exam: Negative: Clubbing, Edema, Tenderness, Swelling Skin Exam: Positive: Nl turgor and temperature; Negative: Rash Psych Exam: Positive: Other (chronic dementia, no behavioral issues.) Assessment /Plan Assessment 03/22 -- Spoke with daughter at length. If patient remains 2 assist, daughter can not care for her at home. It sounds as though she is leaning towards PIPE LINE WALKER status for her mother. -- CDT Problems (1) Non-STEMI (non-ST elevated myocardial infarction) Status: Acute Response to Treatment: Stable Problem Text: 03/22/19: pressure stable. Labs stable. Will work with PFS and disposition 03/21: pressures running high, will add isosorbide mononitrate in small dose bid, titrate, also add low dose lisinopril with intent to titrate. ECG shows persistent bradycardia, rate 48, looks junctional and regular. evolving lateral T wave changes noted. Q waves inferiorly noted on admission ECG that were new compared to older records persist. she looks comfortable. Family goal is for her to return home with PIPE LINE WALKER level of care. daughter unsure about Hospice at this time but could be option. patient's family did not opt for intervention which seems an entirely reasonable decision in light of her age and dementia. will attempt to stabilize to achieve goal of returning home. DNR in place. On Asa, will recommend Statin as well. 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 calculated creatinine clearance is approx 25 using her measured weight, would be lower with IBW, so xarelto d/c'd, will substitute eliquis at 2.5mg bid (4) Dementia Status: Chronic Response to Treatment: Stable Problem Text: need to stop donepezil due to bradycardia, memantine can continue Plan/VTE VTE Prophylaxis Ordered?: Yes Plan Anticipated Discharge: Home Advance Directives: DNR VS, I&O, 24H, [place] Vital Signs/I&O Vital Signs Date Time Temp Pulse Resp B/P (MAP) Pulse Ox O2 Delivery O2 Flow Rate FiO2 03/22/19 08:30 158/88 03/22/19 06:00 98.3 88 20 96 03/19/19 20:33 Room Air I&O- Last 24 Hours up to 6 AM 03/22/19 06:00 Intake Total 530 ml Output Total 0 ml Balance 530 ml Laboratory Data 24H LABS Laboratory Tests 2 03/22/19 07:32: Immature Granulocyte % (Auto) 0.7, White Blood Count 8.8, Red Blood Count 3.48L, Hemoglobin 12.2, Hematocrit 36.3, Mean Corpuscular Volume 104.3H, Mean Corpuscular Hemoglobin 35.1H, Mean Corpuscular Hemoglobin Concent 33.6, Red Cell Distribution Width 13.8, Platelet Count 219, Neutrophils (%) (Auto) 76.8H, Lymphocytes (%) (Auto) 12.1L, Monocytes (%) (Auto) 9.9H, Eosinophils (%) (Auto) 0.2, Basophils (%) (Auto) 0.3, Neutrophils # (Auto) 6.8, Lymphocytes # (Auto) 1.1L, Monocytes # (Auto) 0.9H, Eosinophils # (Auto) 0.0, Basophils # (Auto) 0.0, Nucleated Red Blood Cells % (auto) 0.0, Anion Gap 5L, Glomerular Filtration Rate > 60.0, Blood Urea Nitrogen 22H, Creatinine 0.85, Sodium Level 143, Potassium Level 3.7, Chloride Level 110H, Carbon Dioxide Level 28, Calcium Level 8.7L, Aspartate Amino Transf (AST/SGOT) 63H, Alanine Aminotransferase (ALT/SGPT) 37, Alkaline Phosphatase 69, Total Bilirubin 0.6, Total Protein 5.9L, Albumin 3.1L, Albumin/Globulin Ratio 1.11 CBC/BMP Laboratory Tests 03/22/19 07:32 Red Blood Count 3.48 L, Mean Corpuscular Volume 104.3 H, Mean Corpuscular Hemoglobin 35.1 H, Mean Corpuscular Hemoglobin Concent 33.6, Red Cell Distribution Width 13.8, Neutrophils (%) (Auto) 76.8 H, Lymphocytes (%) (Auto) 12.1 L, Monocytes (%) (Auto) 9.9 H, Eosinophils (%) (Auto) 0.2, Basophils (%) (Auto) 0.3, Neutrophils # (Auto) 6.8, Lymphocytes # (Auto) 1.1 L, Monocytes # (Auto) 0.9 H, Eosinophils # (Auto) 0.0, Basophils # (Auto) 0.0, Calcium Level 8.7 L, Aspartate Amino Transf (AST/SGOT) 63 H, Alanine Aminotransferase (ALT/SGPT) 37, Alkaline Phosphatase 69, Total Bilirubin 0.6, Total Protein 5.9 L, Albumin 3.1 L Microbiology Microbiology 03/19/19 Blood Culture - Preliminary, Resulted No Growth after 48 hours. All Specime... 03/19/19 Blood Culture - Preliminary, Resulted No Growth after 48 hours. All Specime... Hilda StovallP Mar 22, 2019 08:49 JAUN CHRISTIE DO Mar 22, 2019 23:32
[2019-03-22] MEDS: ATORVASTATIN 20 MG TAB PO SCH (21:09)
[2019-03-22 22:00] VITALS: BP 102/51
[2019-03-23 06:00] VITALS: BP 110/57
[2019-03-23] MEDS: APIXABAN 2.5 MG TAB (ELIQUIS) PO SCH ×2 (06:17→20:45)
[2019-03-23] MEDS: ISOSORBIDE MONONITRATE 10MG TABLET PO SCH ×3 (06:17→17:00)
--- NOTE | 2019-03-23 10:24 | IPNPDOC ---
Subjective Date Seen The patient was seen on 03/23/19. Subjective Chief Complaint/HPI Denies SOB or CP Constitutional: Denies: Chills, Fever Pulmonary: Denies: Dyspnea, Cough Cardiovascular: Denies: Chest Pain Gastrointestinal: Denies: Nausea, Vomiting, Abdominal Pain, Diarrhea, Constipation Objective Physical Examination General Exam: Positive: Alert, Cooperative, No Acute Distress, Other ([place]) ENT Exam: Positive: Atraumatic, Mucous membr. moist/pink Neck Exam: Negative: JVD Chest Exam: Positive: Clear to auscultation, Normal air movement Heart Exam: Positive: Bradycardic Abdomen Exam: Positive: Normal bowel sounds, Soft; Negative: Tenderness Extremity Exam: Negative: Clubbing, Edema, Tenderness, Swelling Skin Exam: Positive: Nl turgor and temperature; Negative: Rash Psych Exam: Negative: Oriented x 3 Assessment /Plan Problems (1) Non-STEMI (non-ST elevated myocardial infarction) Status: Acute Response to Treatment: Stable Problem Text: 03/23 - Get Echo to asses EF - If severe systolic dysfunction, then may be appropriate for Hospice. cont ASA, Statin, YFN, Isosorbide [place] (No BB due to bradycardia) 03/22/19: pressure stable. Labs stable. Will work with PFS and disposition 03/21: pressures running high, will add isosorbide mononitrate in small dose bid, titrate, also add low dose lisinopril with intent to titrate. ECG shows persistent bradycardia, rate 48, looks junctional and regular. evolving lateral T wave changes noted. Q waves inferiorly noted on admission ECG that were new compared to older records persist. she looks comfortable. Family goal is for her to return home with LICENSE ISSUER level of care. daughter unsure about Hospice at this time but could be option. patient's family did not opt for intervention which seems an entirely reasonable decision in light of her age and dementia. will attempt to stabilize to achieve goal of returning home. DNR in place. On Asa, will recommend Statin as well. 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 calculated creatinine clearance is approx 25 using her measured weight, would be lower with IBW, so xarelto d/c'd, will substitute eliquis at 2.5mg bid (4) Dementia Status: Chronic Response to Treatment: Stable Problem Text: need to stop donepezil due to bradycardia, memantine can continue Plan/VTE VTE Prophylaxis Ordered?: Yes (Eliquis) Plan Therapy: PT Anticipated Discharge: Home Advance Directives: DNR Disposition Possible Hospice House vs SNF depending on Echo VS, I&O, 24H, [place] Vital Signs/I&O Vital Signs Date Time Temp Pulse Resp B/P (MAP) Pulse Ox O2 Delivery O2 Flow Rate FiO2 03/23/19 06:17 110/57 03/23/19 06:00 98.1 64 17 98 03/19/19 20:33 Room Air I&O- Last 24 Hours up to 6 AM 03/23/19 06:00 Intake Total 0 ml Balance 0 ml Laboratory Data Microbiology Microbiology 03/19/19 Blood Culture - Preliminary, Resulted No Growth after 72 hours. All specime... 03/19/19 Blood Culture - Preliminary, Resulted No Growth after 72 hours. All specime... OLENA ALMODOVAR PA-C Mar 23, 2019 10:24
[2019-03-23] MEDS: LISINOPRIL *2.5 MG* TAB PO SCH (11:07)
[2019-03-23] MEDS: MEMANTINE 5MG TABLET (NAMENDA) PO SCH ×2 (11:07→20:45)
[2019-03-23] MEDS: ASPIRIN 81 MG ENTERIC TAB PO SCH (11:07)
[2019-03-23 14:00] VITALS: BP 114/51
[2019-03-23] MEDS: ATORVASTATIN 20 MG TAB PO SCH (20:45)
[2019-03-23 22:00] VITALS: BP 129/56
[2019-03-24 06:00] VITALS: BP 124/60
[2019-03-24] MEDS: ISOSORBIDE MONONITRATE 10MG TABLET PO SCH ×2 (06:37→17:00)
[2019-03-24] MEDS: APIXABAN 2.5 MG TAB (ELIQUIS) PO SCH ×2 (06:37→18:02)
[2019-03-24] MEDS ORDERED: BISACODYL 10 MG SUPP PR PRN (10:15)
[2019-03-24] MEDS: ASPIRIN 81 MG ENTERIC TAB PO SCH (10:54)
[2019-03-24] MEDS: LISINOPRIL *2.5 MG* TAB PO SCH (10:54)
[2019-03-24] MEDS: MIRALAX *UNIT DOSE* 17GM PACKET PO SCH (10:54)
[2019-03-24] MEDS: MEMANTINE 5MG TABLET (NAMENDA) PO SCH ×2 (10:54→22:00)
[2019-03-24] MEDS: DOCUSATE SODIUM 100 MG CAP PO SCH ×2 (10:54→22:00)
[2019-03-24 14:00] VITALS: BP 128/60
[2019-03-24 22:00] VITALS: BP 122/70
[2019-03-24] MEDS: ACETAMINOPHEN TAB 650MG DOSE (2X325MG) PO PRN (22:00)
[2019-03-24] MEDS: ATORVASTATIN 20 MG TAB PO SCH (22:00)
[2019-03-25 06:00] VITALS: BP 112/58
[2019-03-25] MEDS: ISOSORBIDE MONONITRATE 10MG TABLET PO SCH ×2 (06:18→18:25)
[2019-03-25] MEDS: APIXABAN 2.5 MG TAB (ELIQUIS) PO SCH ×2 (06:19→18:24)
[2019-03-25 08:09] LABS: HEMATOCRIT 36.1 % (36.0-47.0); HEMOGLOBIN 12.1 g/dl (12.0-15.5); MEAN CORPUSCULAR HEMOGLOBIN 34.6 pg (27.0-33.0); MEAN CORPUSCULAR HGB CONC 33.5 g/dl (32.0-36.5); MEAN CORPUSCULAR VOLUME 103.1 fl (80.0-96.0); PLATELET COUNT, AUTOMATED 227 10^3/uL (150-450); WHITE BLOOD COUNT 8.9 10^3/uL (4.0-10.0)
[2019-03-25 08:34] LABS: BLOOD UREA NITROGEN 30 MG/DL (7-18); CALCIUM LEVEL 8.5 MG/DL (8.8-10.2); CARBON DIOXIDE LEVEL 27 MEQ/L (21-32); CHLORIDE LEVEL 112 MEQ/L (98-107); GLOMERULAR FILTRATION RATE > 60.0 (>32); GLUCOSE, FASTING 96 MG/DL (70-100); POTASSIUM SERUM 3.4 MEQ/L (3.5-5.1); SODIUM LEVEL 145 MEQ/L (136-145)
[2019-03-25] MEDS: ASPIRIN 81 MG ENTERIC TAB PO SCH (08:47)
[2019-03-25] MEDS: MEMANTINE 5MG TABLET (NAMENDA) PO SCH ×2 (08:47→20:03)
[2019-03-25] MEDS: MIRALAX *UNIT DOSE* 17GM PACKET PO SCH (08:47)
[2019-03-25] MEDS: LISINOPRIL *2.5 MG* TAB PO SCH (08:47)
[2019-03-25] MEDS: DOCUSATE SODIUM 100 MG CAP PO SCH ×2 (08:47→20:03)
--- NOTE | 2019-03-25 10:46 | DSES ---
DATE OF ADMISSION: 03/19/2019 DATE OF ALF FACILITY (SNF) STATUS: 03/24/2019 DATE OF DISCHARGE: BRIEF HISTORY AND PHYSICAL: The patient is an 88-year-old patient with a past medical history of dementia, deep venous thrombosis (DVT) on Xarelto, presented to the emergency room with her daughter. She is noted to be increasingly lethargic and short of breath. Troponin was found to be 18.6 in the emergency room. Past medical history is significant for dementia and DVT on Xarelto. Patient had lactic acidosis on admission with a lactic acid level of 3.6. Pertinent labs on admission: Troponin 18.6. BUN 15, creatinine 1.43, lactic acid 3.8 White count 10.5, hemoglobin 14.2, platelets 283,000. Chest x-ray showed mild cardiomegaly, otherwise no acute disease. Head CT showed moderate, age-related parenchymal volume loss with white matter changes demonstrated in the subcortical centrum semiovale and periventricular white matter consistent with small vessel white matter angiopathic gliosis. EKG showed junctional bradycardia, nonspecific T-wave abnormality and abnormal rhythm. HOSPITAL COURSE: 1. The patient was admitted for non-ST segment elevation myocardial infarction (AL). Daughter is her healthcare proxy, declined sending the patient for cardiac catheterization and signed a medical orders for life-sustaining treatment (MOLST) form with DO NOT RESUSCITATE/DO NOT INTUBATE orders. Her troponins eloy to 23.8 at their peak and have since trended back down. She, at this point, is on lisinopril, Lipitor and aspirin and medically managed, but quite weak and debilitated, not taking much by mouth. She is not participating in therapy at this point. she will be made fdc facility (SNF). She does have an echocardiogram that is pending. If her ejection fraction is significantly diminished, then we may consider Hospice House evaluation or comfort measures only (NEURO PSYCH SALES SPECIALIST) status, depending on whether she starts to eat and drink 2. History of DVT. She was on Xarelto, but based on her age and renal function, the more appropriate medication would be renally dosed Eliquis, so she has been switched to this and seems to be tolerating it with stability of her hemoglobin and no signs of bleeding. 3. Junctional bradycardia. Rate lowering medications, such as donepezil, have been discontinued. Her heart rate has improved some, but she still is in the 40s at times and 60s at other times. Again, medical management without intervention is requested per healthcare proxy 4. Dementia. Donepezil was discontinued due to bradycardia. DISPOSITION: She is stable for SNF status. Medications will be dictated at the time of her transfer the alf. DISCHARGE DIAGNOSES: 1. Non-ST segment elevation myocardial infarction (AL). 2. Junctional bradycardia. 3. History of deep venous thrombosis (DVT). 4. Dementia. 5. Lactic acidosis on admission with a lactic acid level 3.8 on admission and 3.6 the next day. edited: 03/24/2019 1225 astonm KILO
[2019-03-25 14:00] VITALS: BP 113/55
[2019-03-25] MEDS: ATORVASTATIN 20 MG TAB PO SCH (20:03)
[2019-03-26 06:00] VITALS: BP 101/62
[2019-03-26] MEDS: ISOSORBIDE MONONITRATE 10MG TABLET PO SCH ×2 (06:20→17:00)
[2019-03-26] MEDS: APIXABAN 2.5 MG TAB (ELIQUIS) PO SCH ×2 (06:25→17:16)
[2019-03-26] MEDS: LISINOPRIL *2.5 MG* TAB PO SCH (08:58)
[2019-03-26] MEDS: ASPIRIN 81 MG ENTERIC TAB PO SCH (08:58)
[2019-03-26] MEDS: DOCUSATE SODIUM 100 MG CAP PO SCH ×2 (08:58→21:08)
[2019-03-26] MEDS: MEMANTINE 5MG TABLET (NAMENDA) PO SCH ×2 (08:58→21:08)
[2019-03-26] MEDS: MIRALAX *UNIT DOSE* 17GM PACKET PO SCH (08:59)
[2019-03-26] MEDS ORDERED: MIRALAX *UNIT DOSE* 17GM PACKET PO PRN (09:15)
[2019-03-26] MEDS: ATORVASTATIN 20 MG TAB PO SCH (21:08)
[2019-03-27 06:00] VITALS: BP 124/62
[2019-03-27] MEDS: APIXABAN 2.5 MG TAB (ELIQUIS) PO SCH ×2 (06:24→18:17)
[2019-03-27] MEDS: ISOSORBIDE MONONITRATE 10MG TABLET PO SCH ×2 (06:24→17:00)
[2019-03-27] MEDS: DOCUSATE SODIUM 100 MG CAP PO SCH ×2 (08:17→08:27)
[2019-03-27] MEDS: LISINOPRIL *2.5 MG* TAB PO SCH (08:17)
[2019-03-27] MEDS: ASPIRIN 81 MG ENTERIC TAB PO SCH (08:19)
[2019-03-27] MEDS: MEMANTINE 5MG TABLET (NAMENDA) PO SCH ×2 (08:19→21:28)
[2019-03-27] MEDS: DOCUSATE SOD LIQ 100MG/10ML UDC PO SCH (21:27)
[2019-03-27] MEDS: ATORVASTATIN 20 MG TAB PO SCH (21:28)
[2019-03-28 06:00] VITALS: BP 120/65
[2019-03-28] MEDS: ISOSORBIDE MONONITRATE 10MG TABLET PO SCH ×2 (06:32→17:00)
[2019-03-28] MEDS: APIXABAN 2.5 MG TAB (ELIQUIS) PO SCH ×2 (06:32→17:37)
[2019-03-28] MEDS: LISINOPRIL *2.5 MG* TAB PO SCH (09:27)
[2019-03-28] MEDS: ASPIRIN 81 MG ENTERIC TAB PO SCH (09:27)
[2019-03-28] MEDS: DOCUSATE SOD LIQ 100MG/10ML UDC PO SCH ×2 (09:28→21:09)
[2019-03-28] MEDS: MEMANTINE 5MG TABLET (NAMENDA) PO SCH ×2 (09:28→21:10)
[2019-03-28] MEDS: ATORVASTATIN 20 MG TAB PO SCH (21:10)
[2019-03-28] MEDS: ACETAMINOPHEN TAB 650MG DOSE (2X325MG) PO PRN (22:48)
[2019-03-29 06:00] VITALS: BP 116/60
[2019-03-29] MEDS: ISOSORBIDE MONONITRATE 10MG TABLET PO SCH (06:45)
[2019-03-29] MEDS: APIXABAN 2.5 MG TAB (ELIQUIS) PO SCH (06:49)
[2019-03-29 08:10] VITALS: BP 123/60
[2019-03-29] MEDS: ASPIRIN 81 MG ENTERIC TAB PO SCH (08:10)
[2019-03-29] MEDS: DOCUSATE SOD LIQ 100MG/10ML UDC PO SCH (08:10)
[2019-03-29] MEDS: LISINOPRIL *2.5 MG* TAB PO SCH (08:10)
[2019-03-29] MEDS: MEMANTINE 5MG TABLET (NAMENDA) PO SCH (08:10)
[2019-03-29] MEDS ORDERED: DOCU10ELUD PO (11:23)
[2019-03-29] MEDS ORDERED: PEG1POW PO (11:23)
[2019-03-29] MEDS ORDERED: BISA10SU27 PR (11:23)
[2019-03-29] MEDS ORDERED: ASPI81TAEC PO (11:23)
[2019-03-29] MEDS ORDERED: ATOR1TAB21 PO (11:23)
[2019-03-29] MEDS ORDERED: ISOS10TAB PO (11:23)
[2019-03-29] MEDS ORDERED: ELIQ2.5T PO (11:23)
--- NOTE | 2019-03-31 13:32 | DSES ---
DATE OF ADMISSION: 03/19/2019 DATE OF DISCHARGE: 03/29/2019 ADDENDUM Patient's hospitalization has remained uneventful. She has needed two assist to get out of bed. She has developed no further signs of worsening cardiac dysfunction. She has remained confused, however, is cooperative with staff. DISCHARGE MEDICATIONS: - Eliquis 2.5 mg one by mouth twice a day - aspirin 81 mg one by mouth daily - atorvastatin calcium 40 mg by mouth at bedtime - bisacodyl suppository daily as needed for constipation - Colace 50 mg/5 mL, 10 mL by mouth twice a day - isosorbide mononitrate 10 mg by mouth twice a day - polyethylene glycol 17 grams per packet, one packet by mouth daily as needed for constipation Patient is discharged in stable and satisfactory condition with no further questions at time of discharge.
== END 2019-03-29 13:52 | DRG 281 ==
LOC: M ED 16:57 → EDBD 16:57 → M ED INP 19:58 → M MSPAV 03-20 17:38
PROVIDERS: ADMIT Internal Medicine; ATTEND Family Medicine
DX: I21.4 Non-ST elevation (NSTEMI) myocardial infarction (principal); E87.2 Acidosis; R00.1 Bradycardia, unspecified; F03.90 Unspecified dementia, unspecified severity, without behavioral disturbance, psychotic disturbance, mood disturbance, and anxiety; Z79.01 Long term (current) use of anticoagulants; Z86.718 Personal history of other venous thrombosis and embolism; Z66 Do not resuscitate; Z88.0 Allergy status to penicillin; Z79.899 Other long term (current) drug therapy

== ENCOUNTER → 2019-06-17 | Outpatient (REF) | payer MEDICARE, BC, OTHER ==
[~2019-06-17] MED LIST changes: +ASPI81TAEC PO; +ATOR1TAB21 PO; +BISA10SU27 PR; +DOCU10ELUD PO; +ELIQ2.5T PO; +ISOS10TAB PO; +LISI-1046 PO; +PEG1POW PO; +THERTAB20 PO
[2019-06-17 08:27] LABS: HEMATOCRIT 35.5 % (36.0-47.0); HEMOGLOBIN 11.8 g/dl (12.0-15.5); MEAN CORPUSCULAR HEMOGLOBIN 35.4 pg (27.0-33.0); MEAN CORPUSCULAR HGB CONC 33.2 g/dl (32.0-36.5); MEAN CORPUSCULAR VOLUME 106.6 fl (80.0-96.0); PLATELET COUNT, AUTOMATED 239 10^3/uL (150-450); RED BLOOD COUNT 3.33 10^6/uL (4.00-5.40); WHITE BLOOD COUNT 6.3 10^3/uL (4.0-10.0)
[2019-06-17 08:43] LABS: BLOOD UREA NITROGEN 25 MG/DL (7-18); CALCIUM LEVEL 8.5 MG/DL (8.8-10.2); CARBON DIOXIDE LEVEL 26 MEQ/L (21-32); CHLORIDE LEVEL 110 MEQ/L (98-107); CREATININE FOR GFR 0.66 MG/DL (0.55-1.30); GLOMERULAR FILTRATION RATE > 60.0 (>32); GLUCOSE, FASTING 87 MG/DL (70-100); SODIUM LEVEL 143 MEQ/L (136-145)
== END ==
LOC: SKLAB6 07:00
PROVIDERS: ATTEND Family Medicine
DX: I10 Essential (primary) hypertension (principal); Z79.01 Long term (current) use of anticoagulants

== ENCOUNTER 2019-09-01 13:22 | Emergency (ER) | payer MEDICARE, BC, OTHER ==
[~2019-09-01 13:22] MED LIST changes: -LISI-1046 PO; -THERTAB20 PO
[2019-09-01] MEDS ORDERED: TETANUS/DIPHTHERIA TOX ADSORB ADULT 0.5ML SYR/VIAL (90714) IM ONE (13:45)
--- NOTE | 2019-09-01 13:55 | REP ---
Clinical: Trauma. Fall. Comparison: 03/19/2019 . Findings: Age-related atrophy with periventricular leukomalacia and microvascular ischemic changes are appreciated. The ventricles and sulci are symmetric. Bonds-white differentiation is maintained. There is no evidence for acute intracranial hemorrhage, mass/mass effect, pathology or infarction. No extra-axial fluid collection. Calvarium is intact. Paranasal sinuses and mastoid air cells are clear. Impression: Age related atrophy and microvascular ischemic changes. No acute intracranial hemorrhage, infarction, or mass/mass effect. Electronically Signed by Frederick Holley MD 09/01/2019 01:46 P
--- NOTE | 2019-09-01 13:59 | REP ---
Clinical: Trauma. Fall. Technique: Axial noncontrast images from the skull base to the thoracic inlet with coronal and sagittal re-formations. Comparison: 01/17/2019. Findings: Age-related osteopenia and advanced multilevel degenerative disc osteophyte complexes are appreciated including mild anterolisthesis at the C4-5 level, marginal and posterior osteophytes with endplate sclerosis and near complete disc space obliteration at the C5-6 and C6-7 levels. Extensive chondrocalcinosis at the atlantoaxial level is also appreciated and the above findings are relatively stable as compared with prior examination. No acute fracture / compression injury or acute subluxation. Spinal canal is patent. Posterior elements and spinous processes are intact. Paravertebral soft tissues are normal. Impression: 1. Age-related osteopenia and advanced multilevel degenerative spondylosis essentially unchanged compared to 01/17/2019. 2. No acute cervical spine trauma/injury appreciated. Electronically Signed by Frederick Holley MD 09/01/2019 01:50 P
[2019-09-01 14:04] VITALS: BP 118/82
[2019-09-01] MEDS ORDERED: LISI-1046 PO (14:04)
[2019-09-01] MEDS ORDERED: THERTAB20 PO (14:04)
== END 2019-09-01 14:47 | disposition home or self-care (01) ==
LOC: M ED 13:22
DX: S09.90XA Unspecified injury of head, initial encounter (principal); W01.0XXA Fall on same level from slipping, tripping and stumbling without subsequent striking against object, initial encounter; Y92.129 Unspecified place in nursing home as the place of occurrence of the external cause; M25.78 Osteophyte, vertebrae; M43.12 Spondylolisthesis, cervical region; M85.88 Other specified disorders of bone density and structure, other site; I67.2 Cerebral atherosclerosis; I25.10 Atherosclerotic heart disease of native coronary artery without angina pectoris; I21.9 Acute myocardial infarction, unspecified; Z88.0 Allergy status to penicillin; Z79.82 Long term (current) use of aspirin; Z79.84 Long term (current) use of oral hypoglycemic drugs; Z79.899 Other long term (current) drug therapy

== ENCOUNTER → 2019-09-16 | Outpatient (REF) | payer MEDICARE, BC, OTHER ==
[~2019-09-16] MED LIST changes: +LISI-1046 PO; +THERTAB20 PO
[2019-09-16 08:18] LABS: HEMATOCRIT 38.8 % (36.0-47.0); HEMOGLOBIN 12.5 g/dl (12.0-15.5); MEAN CORPUSCULAR HEMOGLOBIN 34.2 pg (27.0-33.0); MEAN CORPUSCULAR HGB CONC 32.2 g/dl (32.0-36.5); MEAN CORPUSCULAR VOLUME 106.3 fl (80.0-96.0); PLATELET COUNT, AUTOMATED 273 10^3/uL (150-450); RED BLOOD COUNT 3.65 10^6/uL (4.00-5.40); WHITE BLOOD COUNT 6.6 10^3/uL (4.0-10.0)
[2019-09-16 08:43] LABS: ALBUMIN 3.4 GM/DL (3.2-5.2); ALT/SGPT 18 U/L (12-78); BILIRUBIN,TOTAL 0.6 MG/DL (0.2-1.0); BLOOD UREA NITROGEN 25 MG/DL (7-18); CALCIUM LEVEL 8.5 MG/DL (8.8-10.2); CARBON DIOXIDE LEVEL 27 MEQ/L (21-32); CHLORIDE LEVEL 107 MEQ/L (98-107); CREATININE FOR GFR 0.79 MG/DL (0.55-1.30); GLOMERULAR FILTRATION RATE > 60.0 (>32); GLUCOSE, FASTING 92 MG/DL (70-100); POTASSIUM SERUM 3.8 MEQ/L (3.5-5.1); SODIUM LEVEL 141 MEQ/L (136-145); TOTAL PROTEIN 6.4 GM/DL (6.4-8.2)
== END ==
LOC: SKLAB6 07:00
PROVIDERS: ATTEND Family Medicine
DX: Z79.899 Other long term (current) drug therapy (principal)

== ENCOUNTER → 2019-11-04 | Outpatient (CLI) | payer MEDICARE, BC, OTHER ==
--- NOTE | 2019-11-04 17:39 | REPVR ---
PROCEDURE INFORMATION: Exam: CT Head Without Contrast Exam date and time: 11/04/2019 4:59 PM Age: 89 years old Clinical indication: Injury or trauma; Fall; Initial encounter; Blunt trauma (contusions or hematomas); Additional info: Fall left frontal hematoma TECHNIQUE: Imaging protocol: Computed tomography of the head without contrast. Radiation optimization: All CT scans at this facility use at least one of these dose optimization techniques: automated exposure control; mA and/or kV adjustment per patient size (includes targeted exams where dose is matched to clinical indication); or iterative reconstruction. COMPARISON: CT Head without contrast 09/01/2019 1:36 PM FINDINGS: Brain: Moderate hypoattenuating foci are noted in the central cerebral, posterior superior periatrial and anterior lateral ventricular periventricular white matter bilaterally. No intracranial hemorrhage. No mass or acute cortical infarction identified. Ventricles: Prominence of the ventricular system and subarachnoid spaces is consistent with the patient's age of 89 years. Bones/joints: Unremarkable. No acute fracture. Sinuses: Visualized sinuses are unremarkable. No fluid levels. Mastoid air cells: Visualized mastoid air cells are well aerated. Orbits: Bilateral prior cataract surgery with lens replacements. Soft tissues: Mild left anterior inferior frontal soft tissue swelling. Vasculature: Atherosclerotic calcifications are present involving the carotid artery siphons and vertebral arteries bilaterally. IMPRESSION: 1. 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 2. Moderate chronic white matter microvascular ischemic disease. 3. No acute intracranial injury identified. Electronically signed by: Luis Molina On 11/04/2019 17:39:05 PM
== END ==
LOC: M RAD 16:15
PROVIDERS: ATTEND Family Medicine
DX: S00.83XA Contusion of other part of head, initial encounter (principal); W01.0XXA Fall on same level from slipping, tripping and stumbling without subsequent striking against object, initial encounter; Y92.89 Other specified places as the place of occurrence of the external cause; Y93.9 Activity, unspecified; Y99.9 Unspecified external cause status; Z79.01 Long term (current) use of anticoagulants

== ENCOUNTER → 2019-11-04 | Outpatient (REF) | payer MEDICARE, BC, OTHER | LOC: SKLAB6 07:00 | PROVIDERS: ATTEND Family Medicine | DX: S00.83XD Contusion of other part of head, subsequent encounter (principal); Z53.8 Procedure and treatment not carried out for other reasons ==

== ENCOUNTER → 2019-12-16 | Outpatient (REF) | payer MEDICARE, BC, OTHER ==
[2019-12-16 09:22] LABS: HEMATOCRIT 38.5 % (36.0-47.0); HEMOGLOBIN 12.5 g/dl (12.0-15.5); MEAN CORPUSCULAR HEMOGLOBIN 34.5 pg (27.0-33.0); MEAN CORPUSCULAR HGB CONC 32.5 g/dl (32.0-36.5); MEAN CORPUSCULAR VOLUME 106.4 fl (80.0-96.0); PLATELET COUNT, AUTOMATED 257 10^3/uL (150-450); RED BLOOD COUNT 3.62 10^6/uL (4.00-5.40); WHITE BLOOD COUNT 7.5 10^3/uL (4.0-10.0)
== END ==
LOC: SKLAB6 07:00
PROVIDERS: ATTEND Family Medicine
DX: I10 Essential (primary) hypertension (principal); I25.2 Old myocardial infarction; Z79.01 Long term (current) use of anticoagulants; Z86.718 Personal history of other venous thrombosis and embolism

== ENCOUNTER → 2020-03-16 | Outpatient (REF) | payer MEDICARE, BC, OTHER ==
[~2020-03-16] MED LIST changes: -LISI-1046 PO; +LISI2.5T2 PO
[2020-03-16 09:43] LABS: HEMATOCRIT 43.1 % (36.0-47.0); HEMOGLOBIN 13.8 g/dl (12.0-15.5); MEAN CORPUSCULAR HEMOGLOBIN 34.2 pg (27.0-33.0); MEAN CORPUSCULAR VOLUME 106.9 fl (80.0-96.0); PLATELET COUNT, AUTOMATED 249 10^3/uL (150-450); RED BLOOD COUNT 4.03 10^6/uL (4.00-5.40); WHITE BLOOD COUNT 7.6 10^3/uL (4.0-10.0)
[2020-03-16 10:15] LABS: ALBUMIN 3.5 GM/DL (3.2-5.2); ALT/SGPT 23 U/L (12-78); BILIRUBIN,TOTAL 0.6 MG/DL (0.2-1.0); BLOOD UREA NITROGEN 18 MG/DL (7-18); CALCIUM LEVEL 9.2 MG/DL (8.8-10.2); CARBON DIOXIDE LEVEL 29 MEQ/L (21-32); CHLORIDE LEVEL 107 MEQ/L (98-107); CREATININE FOR GFR 0.84 MG/DL (0.55-1.30); GLOMERULAR FILTRATION RATE > 60.0 (>32); GLUCOSE, FASTING 125 MG/DL (70-100); POTASSIUM SERUM 4.1 MEQ/L (3.5-5.1); SODIUM LEVEL 143 MEQ/L (136-145); TOTAL PROTEIN 6.4 GM/DL (6.4-8.2)
== END ==
LOC: SKLAB6 07:00
PROVIDERS: ATTEND Family Medicine
DX: I10 Essential (primary) hypertension (principal); E78.5 Hyperlipidemia, unspecified; I25.2 Old myocardial infarction; Z79.899 Other long term (current) drug therapy